=== PATIENT | female | born 1995 | race Caucasian/White ===

== ENCOUNTER 2017-05-24 22:13 | Emergency (ER) | END 2017-05-25 00:55 | disposition home or self-care (01) | DX: N39.0 Urinary tract infection, site not specified (principal); J45.909 Unspecified asthma, uncomplicated; Z79.84 Long term (current) use of oral hypoglycemic drugs | CPT/HCPCS: 71020; 81003; 93005; 94664; Z7502; Z7610 ==

== ENCOUNTER 2017-08-17 06:35 | Emergency (ER) | payer MEDICAID ==
[~2017-08-17] VITALS: Ht 157.5 cm; Wt 122.0 kg
[~2017-08-17 06:35] MED LIST: ACET1TAB40 PO; ALBU8.5H3 INH; CEPH-443 PO; DOXY100T20 PO; IBUP-1542 PO; METF500T4 PO
[2017-08-17 06:37] VITALS: Ht 157.5 cm; Wt 122.0 kg
[2017-08-17] MEDS ORDERED: predniSONE 20 MG TAB PO STA (07:27)
[2017-08-17] MEDS ORDERED: ALBUTEROL 0.5% (NEB) 2.5 MG/0.5 ML AMP NEB STA (07:27)
[2017-08-17] MEDS ORDERED: IPRATROPIUM (NEB) 0.5 MG/2.5 ML AMP NEB STA (07:27)
--- NOTE | 2017-08-17 07:37 | ERD ---
ER Documentation Chief Complaint Date/Time DATE: 08/17/17 TIME: 07:33 Chief Complaint flu like symptoms x 3 days, cough HPI This is a 21-year-old female with chronic bronchitis. She indicates that since she was 13 years of age she has been dealing with bronchitis. She indicates her difficulty in breathing and dyspnea is usually exacerbated with changes in weather. She stated over the past 3 days she has had a dry cough with dyspnea. She is utilizing her nebulizer treatment every 4 hours with no improvement of her symptoms. She has had no fevers or shaking or chills. She denies any recent travel. She has had no sick contacts. She has no shortness of breath at rest or exertion. She is not on oral contraceptives. She denies any frequency urgency or dysuria. She denies any rhinorrhea or headache. No changes in vision. No chest pain or pressure that radiates the neck or back or jaw. She has never required intubation in the past ROS All systems reviewed and are negative except as per history of present illness. Medications Home Meds Active Scripts Cephalexin* (Keflex*) 500 Mg Capsule, 500 MG PO QID for 5 Days, CAP Prov:KILEY BHATIA PA-C 05/25/17 Ibuprofen* (Ibuprofen*) 600 Mg Tablet, 600 MG PO Q6, #14 TAB Prov:JUSTEN ODOM MD 04/07/16 Acetaminophen-Codeine* (Acetaminophen-Cod #3*) 300-30 Mg Tab, 1 TAB PO Q4H Y for PAIN, #10 TAB Prov:JUSTEN ODOM MD 04/07/16 Doxycycline Hyclate* (Doxycycline Hyclate*) 100 Mg Tablet.dr, 100 MG PO BID for 10 Days, TAB Prov:JUSTEN ODOM MD 04/07/16 Reported Medications Metformin Hcl* (Metformin Hcl*) 500 Mg Tablet, 2000 MG PO DAILY, TAB 11/06/14 Albuterol Sulfate* (Proair HFA*) 8.5 Gm Hfa.aer.ad, 1 INH INH DIRECTED 01/05/13 Allergies Allergies: Coded Allergies: No Known Allergies (Verified Allergy, Mild, 04/07/16) PMhx/Soc History of Surgery: No Anesthesia Reaction: No Hx Neurological Disorder: Yes (MIGRAINE) Hx Respiratory Disorders: No Hx Cardiac Disorders: No Hx Psychiatric Problems: No Hx Miscellaneous Medical Probl: Yes (PCOS) Hx Alcohol Use: No Hx Substance Use: No Hx Tobacco Use: No Smoking Status: Never smoker Physical Exam Vitals Vital Signs Date Time Temp Pulse Resp B/P Pulse Ox O2 Delivery O2 Flow Rate FiO2 08/17/17 06:37 98.7 94 18 128/85 99 Physical Exam Constitutional:Well-developed. Well-nourished. HEENT:Normocephalic. Atraumatic.Pupils were equal round reactive to light. Moist mucous membranes.No tonsillar exudates. Neck: No nuchal rigidity. No lymphadenopathy. No posterior cervical spine tenderness or step-offs. Respiratory: Not using accessory muscles of respiration.Lungs were clear to auscultation bilaterally. No rhonchi. No rales. Mild wheezing on end auscultation bilaterally and patient speaking in full complete sentences. No stridor. Cardiovascular: Regular rate regular rhythm.No murmurs. No rubs were appreciated.S1, S2 normal. Distal pulses are palpable 2+ bilaterally. GI: Abdomen was soft. Nontender. Non Distended. No pulsatile abdominal masses or bruits. No rebound. No guarding. Bowel sounds were present and normal. Muscle skeletal: Full range of motion of both the upper and lower extremities bilaterally.Normal muscle tone.No assymetrical calf tenderness or swelling. Skin: No petechia, no purpura. No lesions on the palms or the soles of the feet. No maculopapular rash. NEURO: Patient was alert, awake, orientated x3.No facial droop. Gait observed and normal with no ataxia.Speech had regular rate and rhythm. No focal neurological deficits. Results 24 hrs Current Medications Medications (Trade) Dose Ordered Sig/Beto Route PRN Reason Start Time Stop Time Status Last Admin Dose Admin Albuterol (Proventil 0.5% (Neb)) 10 mg ONCE STAT NEB 08/17/17 07:27 08/17/17 07:33 DC Ipratropium [place] (Atrovent 0.02% (Neb)) 0.5 mg ONCE STAT NEB 08/17/17 07:27 08/17/17 07:33 DC Prednisone (Prednisone) 60 mg ONCE STAT PO 08/17/17 07:27 08/17/17 07:33 DC Procedures/MDM The patient presented to the emergency department with dyspnea. My differential diagnosis included but was not limited to upper airway obstruction, CHF, pulmonary embolism, cardiac ischemia, pneumonia, pneumothorax, anemia, drug overdose, pulmonary edema, COPD or asthma. Patient has known history of chronic bronchitis. Her wheezing was not new in onset and therefore did not feel was necessary to obtain a chest radiograph. The patient had received a nebulizer treatment of albuterol and Atrovent. She was given steroids in the emergency department. Her wheezing had completely resolved. Urine test was negative. Patient felt comfortable being discharged home with steroids. The patient was discharged home in fair condition. They were instructed to return to the emergency department at any time if there was any worsening of their condition. The patient stated they would follow up with their PCP in the next 24-48 hours to initiate a suitable medication regimen under the care of their PCP as well as to allow their PCP to monitor any drug reactions. The patient was discharged home with prescriptions after they gave informed consent to the new medication. They were also fully informed by myself on the adverse effects and adverse drug interactions in order to provide adequate safeguards to prevent possible adverse reactions to medications. Departure Diagnosis: Primary Impression: Bronchitis Condition: Fair NOELLE POWELL Aug 17, 2017 07:37
[2017-08-17] MEDS ORDERED: ALBU8.5H3 INH (07:38)
[2017-08-17] MEDS ORDERED: PRED20TA PO (07:38)
[2017-08-17] MEDS ORDERED: ALBU2.5V3 NEB (08:32)
== END 2017-08-17 09:07 | disposition home or self-care (01) ==
LOC: E/R 06:35
DX: J40 Bronchitis, not specified as acute or chronic (principal)
CPT/HCPCS: 94664; J7512; Z7502; Z7610

== ENCOUNTER 2018-01-17 21:23 | Emergency (ER) | END 2018-01-18 01:32 | disposition left against medical advice (07) ==